=== PATIENT | male | born 1980 | race African-American/Black ===

== ENCOUNTER 2018-02-06 18:15 | Emergency (ER) | payer SELFPAY ==
[~2018-02-06] VITALS: Ht 190.5 cm; Wt 102.0 kg
[2018-02-06 18:26] VITALS: BP 124/68; PULSE 57; RESP 18; TEMP 98.6; O2SAT 100
[2018-02-06] MEDS ORDERED: CLINDAMYCIN 150 MG CAP PO ONE (20:15)
[2018-02-06] MEDS ORDERED: CLIN150 PO (20:19)
[2018-02-06] MEDS ORDERED: PERI0.126 SWISH-SPIT (20:19)
--- NOTE | 2018-02-06 20:19 | PD ---
HPI Chief Complaint: Oral / Dental Pain or Problem Time Seen by Provider: 20:01 Travel History International Travel<30 days: No Contact w/Intl Traveler<30days: No Traveled to known affect area: No History of Present Illness HPI The patient is a 37-year-old male who presents to the emergency department for dental pain and facial pain. The patient states he had some to sensitivity of a right lower tooth several days ago. He took some amoxicillin that was at home and his symptoms improved. However, he now notes swelling and pain just under the mandible on the affected side, inferior to where the affected tooth was located. He also complains of occasional pain with swallowing. Pain does radiate up to the right ear. He denies any fever, chills, or sweats. Symptoms are mild to moderate. Patient has been applying heat over the affected area which does help with his symptoms, cold is slightly exacerbating to his pain. 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 SKIN: Focused skin assessment warm/dry. HEAD: Atraumatic. Normocephalic. EYES: Pupils equal and round. No scleral icterus. No injection or drainage. ENT: No nasal bleeding or discharge. Mucous membranes pink and moist. Inspection of the dentition reveals patient has tenderness over tooth #29, mild pain with palpation. No obvious gingival swelling. There does appear to be an old metallic filling in place. Right tympanic membranes translucent and right EAC is clear. The left tympanic membrane has a cerumen impaction. NECK: Trachea midline. No JVD. Mild right anterior cervical lymphadenopathy that is tender. MUSCULOSKELETAL: No obvious deformities. No clubbing. No cyanosis. No edema. NEUROLOGICAL: Awake and alert. No obvious cranial nerve deficits. Motor grossly within normal limits. Normal speech. PSYCHIATRIC: Appropriate mood and affect; insight and judgment normal. Data Data Last Documented VS Vital Signs Date Time Temp Pulse Resp B/P (MAP) Pulse Ox O2 Delivery O2 Flow Rate FiO2 02/06/18 18:26 98.6 57 18 124/68 (86) 100 Orders Orders Clindamycin (Cleocin) (02/06/18 20:15) [facility] Medical Decision Making Medical Screen Exam Complete: Yes Emergency Medical Condition: Yes Medical Record Reviewed: Yes Differential Diagnosis Differential diagnosis includes dental abscess, odontalgia, sialoadenitis, salivary duct obstruction, peritonsillar abscess, tonsillitis, pharyngitis. 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 Tylenol and/or Motrin as needed for pain. Heat to the affected area as needed. Diet as tolerated. Diagnosis Primary Impression: Odontalgia Patient Instructions: General Instructions Additional Instructions: Medication as directed. Follow-up with a dentist. Diet as tolerated. Use Peridex after clindamycin has finished until you see a dentist. Med/Other Pt SpecificInfo: Prescription(s) given Scripts Chlorhexidine Gluconate (Mouth) Liq (Peridex Liq) 0.12% Soln 15 ML SWISH-SPIT BID, #473 ML 0 Refills Prov: Que Varma MD 02/06/18 Clindamycin (Cleocin) 150 Mg Cap 150 MG PO Q6H for Infection for 10 Days, #40 CAP 0 Refills Prov: Que Varma MD 02/06/18 Disposition: 01 DISCHARGE HOME Condition: Stable Que Varma MD Feb 06, 2018 20:19
== END 2018-02-06 21:10 | disposition home or self-care (01) ==
LOC: NEPD 18:15
DX: K08.89 Other specified disorders of teeth and supporting structures (principal)
CPT/HCPCS: 99283